=== PATIENT | male | born 1995 | race Caucasian/White ===

== ENCOUNTER 2022-11-22 16:33 | Emergency (ER) | payer BC, SELFPAY ==
[2022-11-22 17:02] VITALS: BP 111/69; PULSE 73; RESP 14; TEMP 36.1; O2SAT 98; BMI 29.8
--- NOTE | 2022-11-22 18:13 | ED.SKABFB ---
HPI - Skin/Abscess/Foreign Bdy General Date Seen: 11/22/22 Chief complaint: Skin/Abscess/Foreign Body Stated complaint: Possible infection on left leg Time Seen by Provider: 11/22/22 16:35 Source: patient Mode of arrival: ambulatory Limitations: no limitations History of Present Illness HPI narrative: Patient is a 27-year-old gentleman with an abscess swelling on the left lateral leg, he has had this for the last 6 months, in the last few days he has noticed some redness, he previously been on a prescription for Keflex a clear this up. He has a appointment with Dermatology coming up in a month, have him see at with a will likely do an excision. Is never really a lot of pain with that there is no fever, chills, he just noted that it is little bit more swollen than it was a few days ago. Does admit to me that he has been squeezing it. Related Data Home Medications Medication Instructions Recorded Confirmed No Known Home Medications 11/22/22 11/22/22 Allergies Allergy/AdvReac Type Severity Reaction Status Date / Time No Known Drug Allergies Allergy Verified 11/22/22 17:08 Review of Systems Status of ROS: Reports: 10 or more systems reviewed and unremarkable except as noted in History and below PFSH PFS Social History Smoking Status: Never smoker How often do you have a drink containing alcohol: monthly or less AUDIT-C Alcohol total score: 1 Non-prescribed substance use: denies use Exam Narrative: Exam Narrative: On examination on the left lateral part of his upper leg there is an area, which is about 2-3 cm wide with some fluctuance within it, really not a lot of pain, there is a little pit did corresponds to a sebaceous cyst, within it and then some redness outlying approximately 4-5 cm circling around this area, again not a lot of pain with this. Const: Vital Signs, click to edit/add: Vital Signs - 24 hr 11/22/22 17:02 Temperature 97.0 F L Pulse Rate [Pulse Oximeter] 73 Respiratory Rate 14 Blood Pressure [Ri ght Upper Arm] 111/69 Pulse Oximetry 98 Oxygen Delivery Me thod Room Air Course Vital Signs Vital signs: Initial Vital Signs Temperature 97.0 F L 11/22/22 17:02 Temperature Source Temporal Artery Scan 11/22/22 17:02 Pulse Rate 73 11/22/22 17:02 Respiratory Rate 14 11/22/22 17:02 Blood Pressure 111/69 11/22/22 17:02 Blood Pressure Mean 83 11/22/22 17:02 Blood Pressure Position Sitting 11/22/22 17:02 Pulse Oximetry 98 11/22/22 17:02 Oxygen Delivery Method 11/22/22 17:02 Vital Signs Temperature 97.0 F L 11/22/22 17:02 Pulse Rate 73 11/22/22 17:02 Respiratory Rate 14 11/22/22 17:02 Blood Pressure 111/69 11/22/22 17:02 Pulse Oximetry 98 11/22/22 17:02 Oxygen Delivery Method 11/22/22 17:02 Temperature 97.0 F L 11/22/22 17:02 Pulse Rate 73 11/22/22 17:02 Respiratory Rate 14 11/22/22 17:02 Blood Pressure 111/69 11/22/22 17:02 Pulse Oximetry 98 11/22/22 17:02 Oxygen Delivery Method 11/22/22 17:02 MDM - Skin/Abscess/Foreign Bdy MDM Narrative Medical decision making narrative: I think this is in his sebaceous cyst it has been broken, and likely inflammatory reaction I could not rule out a cellulitis, but given the fact he improved before I think Keflex for 10 days would be in order. I do not think at the present time he needs to have this excised, although if it does worsen then this would be considered with packing. Medical Records Attestation: I reviewed the patient's medical records. Discharge Plan Discharge Clinical Impression: Sebaceous cyst, Cellulitis Patient Disposition: Home, Self-Care Condition: Stable Instructions: Cellulitis (ED), Dermal Cyst Excision (DC), Cyst (ED), Warm Compress or Soak (ED) Additional Instructions: Let us try the Keflex and 3 times a day, for the next 10 days, see we can get this under control. Increasing pain swelling redness, fevers the need to come back and we will we forced to do an excision, what I would like to do is get this calmed down so than the environmental compliance manager or designate is able to excise it. Prescriptions: No Action No Known Home Medications Follow Up/Referrals: Provider,Not a Local [Primary Care Provider] - Stand Alone Forms: [employer] Info Instructions
== END 2022-11-22 18:21 | disposition home or self-care (01) ==
PROVIDERS: Emergency Provider Family Medicine
DX: L72.3 Sebaceous cyst (principal); L03.90 Cellulitis, unspecified
CPT/HCPCS: 99283; 99284

== ENCOUNTER 2023-01-05 10:24 | Outpatient (CLI) | payer BC, SELFPAY | END 2023-01-05 10:25 | disposition home or self-care (01) | PROVIDERS: PCP Family Medicine; Visit Provider Family Medicine | DX: Z00.00 Encounter for general adult medical examination without abnormal findings (principal); Z13.6 Encounter for screening for cardiovascular disorders | CPT/HCPCS: 80061 ==

== ENCOUNTER 2024-05-08 17:05 | Emergency (ER) | payer OTHER, SELFPAY ==
[2024-05-08 17:13] VITALS: BP 139/88; PULSE 77; RESP 16; TEMP 36.3; O2SAT 97
--- NOTE | 2024-05-08 17:25 | CRLHL7_ITS ---
For Patients: As a result of the Cures Act, medical imaging exams and procedure reports are released immediately into your electronic medical record. You may view this report before your referring provider. If you have questions, please contact your health care provider. Indication: PINICHED IN MACHINERY AT WORK. Technique: Three views of the right 3rd digit Comparison: None Findings/impression : No acute fracture or malalignment. The osseous structures are unremarkable. There is some minimal soft tissue edema along the palmar aspect of the 3rd digit distally with some slightly increased opacity of the soft tissues without radiopaque foreign bodies. Dictated by Chad Bonds MD @ 05/08/2024 6:46:03 PM (Electronically Signed)
--- NOTE | 2024-05-08 17:57 | ED_ITS ---
HPI - Extremity Injury (Upper) General Chief Complaint: Extremity Pain/Injury, Upper Stated Complaint: fingers pinched at work Time Seen by Provider: 05/08/24 17:07 History of Present Illness HPI narrative: This 29-year-old male comes in with an injury to his right middle finger and right thumb that occurred at work just prior to arrival. He was assembling some kind of product and using a pressure machine that somehow slipped and caused a pinch or crush type injury to the distal portion of both his right middle finger and right thumb. He states that his tetanus is up-to-date and last administered about 2 and half years ago. Related Data Previous Rx's ?Medication ?Instructions ?Recorded triamcinolone acetonide 0.1 % 1 applic topical BID #30 grams 11/17/23 topical cream Allergies Allergy/AdvReac Type Severity Reaction Status Date / Time No Known Drug Allergies Allergy Verified 12/07/23 08:42 Review of Systems Status of ROS: Reports: 10 or more systems reviewed and unremarkable except as noted in History and below Narrative: Constitutional: No fevers, no weight gain or loss. Eyes: No discharge. No vision changes. HENT: No congestion, no sore throat, no ear pain. Cardiovascular: No chest pain, no palpitations. Respiratory: No shortness of breath, no wheezes, no cough. Gastrointestinal: No abdominal pain, no vomiting, no diarrhea. Genitourinary: No dysuria, no hematuria. Musculoskeletal: Normal range of motion. Skin: No rashes, no pruritis. Neurological: No dizziness, weakness, sensory change, speech change. Endo/Heme/Allergies: No bruising or bleeding. No polydipsia. Pysch: no suicidality, no anxiety, no insomnia. All other systems reviewed and are negative. [facility] Surgical History History of tympanostomy tube placement ?Z96.22 - Myringotomy tube(s) status (ICD-10) Social History Smoking Status: Never smoker How often do you have a drink containing alcohol: monthly or less AUDIT-C Alcohol total score: 1 Non-prescribed substance use: denies use Little interest or pleasure in doing things: not at all Feeling down, depressed, or hopeless: not at all Exam Narrative: Exam Narrative: Constitutional: Well-developed, well-nourished, no acute distress. HEENT: Normocephalic, atraumatic. Neck: Normal range of motion. Nontender. Supple. Heart: Intact distal pulses. Lungs: No chest discomfort. No wheezes, rhonchi, or rales. Abdomen: Nontender. Back: Normal range of motion. Extremities: Normal range of motion. Superficial abrasion on the distal portion of the right thumb. The distal portion of the right middle finger has a 1 cm laceration on the palmar aspect. Range of motion is intact. Skin: Intact. No rash. Warm. No erythema or pallor. Neurologic: No altered sensation. No weakness. Alert and oriented. Psychiatric: No suicidality. No anxiety or depression. No insomnia. Nursing notes and vitals signs are reviewed. Const: Vital Signs, click to edit/add: Vital Signs - 24 hr 05/08/24 17:13 Temperature 97.3 F L Pulse Rate [Right Pulse Oximeter] 77 Respiratory Rate 16 Blood Pressure [Le ft Forearm] 139/88 Pulse Oximetry 97 Oxygen Delivery Me thod Room Air Course Vital Signs Vital signs: Initial Vital Signs Temperature 97.3 F L 05/08/24 17:13 Temperature Source Temporal Artery Scan 05/08/24 17:13 Pulse Rate 77 05/08/24 17:13 Pulse Rhythm Regular 05/08/24 17:13 Respiratory Rate 16 05/08/24 17:13 Blood Pressure 139/88 05/08/24 17:13 Blood Pressure Mean 105 05/08/24 17:13 Blood Pressure Position Sitting 05/08/24 17:13 Pulse Oximetry 97 05/08/24 17:13 Oxygen Delivery Method Room Air 05/08/24 17:13 Vital Signs Temperature 97.3 F L 05/08/24 17:13 Pulse Rate 77 05/08/24 17:13 Respiratory Rate 16 05/08/24 17:13 Blood Pressure 139/88 05/08/24 17:13 Pulse Oximetry 97 05/08/24 17:13 Oxygen Delivery Method Room Air 05/08/24 17:13 Temperature 97.3 F L 05/08/24 17:13 Pulse Rate 77 05/08/24 17:13 Respiratory Rate 16 05/08/24 17:13 Blood Pressure 139/88 05/08/24 17:13 Pulse Oximetry 97 05/08/24 17:13 Oxygen Delivery Method Room Air 05/08/24 17:13 MDM - Extremity Injury (Upper) MDM Narrative Medical decision making narrative: This patient comes in with injury to fingers on his right hand as described above. I did obtain an x-ray of the right middle finger to rule out a tuft fracture. By my review there is no evidence of such fracture. Radiology report is pending. The patient has wound was cleansed and both the 3rd finger and the thumb were repaired using Dermabond. A Band-Aid was also applied. Instructions regarding wound care were given. Discharge Plan Discharge Clinical Impression: Laceration Patient Disposition: Home, Self-Care Condition: Stable Additional Instructions: Keep wounds clean and dry and covered. Increase activity as tolerated. Follow up with MD return if worsening. Prescriptions: No Action triamcinolone acetonide 0.1 % cream 1 applic topical BID Qty: 30 5RF Follow Up/Referrals: Eblert Roach MD [Primary Care Provider] - Stand Alone Forms: [employer] Info Instructions
== END 2024-05-08 18:28 | disposition home or self-care (01) ==
LOC: ED 18:27
PROVIDERS: Emergency Provider Emergency Medicine Emergency Medical Services; PCP Family Medicine
DX: S61.212A Laceration without foreign body of right middle finger without damage to nail, initial encounter (principal); S60.311A Abrasion of right thumb, initial encounter; W31.89XA Contact with other specified machinery, initial encounter
CPT/HCPCS: 12001; 73140; 99283; 99284

== ENCOUNTER 2024-09-08 13:45 | Outpatient (CLI) | payer BC, SELFPAY | END 2024-09-08 13:46 | disposition home or self-care (01) | LOC: LKVREF 10-13 13:46 | PROVIDERS: PCP Family Medicine; Visit Provider Family Medicine | DX: Z83.49 Family history of other endocrine, nutritional and metabolic diseases (principal) | CPT/HCPCS: 81408; 81479 ==